=== PATIENT | male | born 2000 | race Two or more races ===

== ENCOUNTER 2018-07-06 09:11 | Inpatient (IN) | payer MEDICAID, OTHER, BC ==
[2018-07-06] MEDS: NICOTINE 21MG/24HR 1 EA TRANSDERMAL TD (09:00)
[2018-07-06 10:07] LABS: HEMATOCRIT 50.7 % (42.0-52.0); HEMOGLOBIN 17.3 g/dl (13.5-17.5); MEAN CORPUSCULAR HEMOGLOBIN 30.1 pg (27.0-33.0); MEAN CORPUSCULAR HGB CONC 34.1 g/dl (32.0-36.5); MEAN CORPUSCULAR VOLUME 88.3 fl (80.0-96.0); PLATELET COUNT, AUTOMATED 278 10^3/uL (150-450); RED BLOOD COUNT 5.74 10^6/uL (4.30-6.10); RED CELL DISTRIBUTION WIDTH 13.1 % (11.5-14.5)
[2018-07-06 10:26] LABS: AMPHETAMINES LEVEL URINE NEGATIVE (NEGATIVE); BARBITURATES URINE NEGATIVE (NEGATIVE); BENZODIAZEPINES URINE NEGATIVE (NEGATIVE); CANNABINOIDS URINE POSITIVE (NEGATIVE); COCAINE METABOLITE URINE NEGATIVE (NEGATIVE); METHADONE URINE NEGATIVE (NEGATIVE); OPIATES URINE NEGATIVE (NEGATIVE); PHENCYCLIDINE URINE NEGATIVE (NEGATIVE)
[2018-07-06 10:40] LABS: ACETAMINOPHEN LEVEL < 2.0 UG/ML (10.0-30.0); ALBUMIN 4.8 GM/DL (3.2-5.2); ALBUMIN/GLOBULIN RATIO 1.41 (1.00-1.93); ALKALINE PHOSPHATASE 74 U/L (45-117); ALT/SGPT 28 U/L (12-78); ANION GAP 10 MEQ/L (8-16); AST/SGOT 17 U/L (7-37); BILIRUBIN,DIRECT 0.3 MG/DL (0.0-0.2); BILIRUBIN,TOTAL 2.5 MG/DL (0.2-1.0); BLOOD UREA NITROGEN 16 MG/DL (7-18); CARBON DIOXIDE LEVEL 26 MEQ/L (21-32); CHLORIDE LEVEL 105 MEQ/L (98-107); CREATININE FOR GFR 1.09 MG/DL (0.70-1.30); ETHYL ALCOHOL (ETHANOL) < 0.003 % (0.000-0.010); GLUCOSE, FASTING 90 MG/DL (70-100); POTASSIUM SERUM 4.2 MEQ/L (3.5-5.1); SALICYLATE LEVEL < 1.7 MG/DL (5.0-30.0); SODIUM LEVEL 141 MEQ/L (136-145); TOTAL PROTEIN 8.2 GM/DL (6.4-8.2)
[2018-07-06] MEDS ORDERED: ACETAMINOPHEN TAB 650MG DOSE (2X325MG) PO (14:45)
[2018-07-06] MEDS ORDERED: MAALOX 30 ML SUSP *UDC PO (14:45)
[2018-07-06] MEDS ORDERED: HALOPERIDOL 5 MG TAB PO (14:45)
[2018-07-06] MEDS: risperiDONE 2 MG TAB PO (21:00)
[2018-07-07] MEDS: risperiDONE 2 MG TAB PO ×2 (08:19→20:27)
[2018-07-07] MEDS: NICOTINE 21MG/24HR 1 EA TRANSDERMAL TD (08:19)
[2018-07-07] MEDS: traZODone 50 MG TAB PO (20:28)
[2018-07-08] MEDS: NICOTINE 21MG/24HR 1 EA TRANSDERMAL TD (08:14)
[2018-07-08] MEDS: risperiDONE 2 MG TAB PO (08:14)
[2018-07-08] MEDS: MOM 30ML SUSPENSION UDC PO (11:02)
[2018-07-08] MEDS: PALIPERIDONE 3 MG ER TAB (INVEGA) PO (20:57)
[2018-07-08] MEDS: traZODone 50 MG TAB PO (20:57)
[2018-07-08] MEDS: DOCUSATE SODIUM 100 MG CAP PO (20:57)
[2018-07-09] MEDS: PALIPERIDONE 3 MG ER TAB (INVEGA) PO ×2 (09:10→21:06)
[2018-07-09] MEDS: DOCUSATE SODIUM 100 MG CAP PO ×2 (09:10→21:06)
[2018-07-09] MEDS: NICOTINE 21MG/24HR 1 EA TRANSDERMAL TD (09:11)
[2018-07-09] MEDS: PALIPERIDONE PALMITATE 234 MG/1.5 ML INJ (INVEGA SUSTENNA)(J2426) IM (10:52)
[2018-07-09] MEDS: MOM 30ML SUSPENSION UDC PO (18:11)
[2018-07-09] MEDS ORDERED: ALBUTEROL 90 MCG/ACT 8GM HFA INHALER INH (18:30)
[2018-07-09] MEDS: traZODone 50 MG TAB PO (21:06)
[2018-07-09] MEDS: guanFACINE 1 MG TAB PO (21:08)
[2018-07-09] MEDS: LORazepam 2 MG TAB PO (23:16)
[2018-07-10] MEDS: DOCUSATE SODIUM 100 MG CAP PO (09:34)
[2018-07-10] MEDS: NICOTINE 21MG/24HR 1 EA TRANSDERMAL TD (09:35)
[2018-07-10] MEDS: guanFACINE 1 MG TAB PO (21:52)
[2018-07-11] MEDS: NICOTINE 21MG/24HR 1 EA TRANSDERMAL TD (09:00)
[2018-07-11] MEDS: guanFACINE 1 MG TAB PO (20:47)
[2018-07-11] MEDS: traZODone 50 MG TAB PO (20:47)
[2018-07-12] MEDS: NICOTINE 21MG/24HR 1 EA TRANSDERMAL TD (09:08)
[2018-07-12] MEDS: PALIPERIDONE PALMITATE 156 MG/1ML INJ(INVEGA SUSTENNA)(J2426) IM (10:30)
[2018-07-12] MEDS: traZODone 50 MG TAB PO (21:17)
[2018-07-12] MEDS: guanFACINE 1 MG TAB PO (21:17)
[2018-07-13] MEDS: NICOTINE 21MG/24HR 1 EA TRANSDERMAL TD (09:00)
== END 2018-07-13 09:45 | disposition home or self-care (01) | DRG 750 ==
LOC: M ED 09:11 → M ED INP 14:51 → M PSY 18:15
PROVIDERS: Psychiatry & Neurology Psychiatry
DX: F20.0 Paranoid schizophrenia (principal); F41.9 Anxiety disorder, unspecified; F90.9 Attention-deficit hyperactivity disorder, unspecified type; J45.909 Unspecified asthma, uncomplicated; Z79.899 Other long term (current) drug therapy

== ENCOUNTER → 2023-07-14 | Outpatient (REF) | payer MEDICARE, OTHER ==
[~2023-07-14] MED LIST: ALBU2.5V10 INH; BENZ-18 PO; CELE10TA PO; CEPH500C PO; CITA20TA6 PO; DOXY100T PO; GUAN1TA PO; INVE234I IM; MUCI600T31 PO; ONDA8TAB8 PO; PRED20TA PO; RISP-7 PO; RISP-8 PO; TRAZ1TAB10 PO; VENTAER INH
== END ==
LOC: M LAB REF 21:38
PROVIDERS: ATTEND Physician Assistant
DX: M79.10 Myalgia, unspecified site (principal)

== ENCOUNTER 2023-07-16 09:41 | Inpatient (IN) | payer MEDICARE ==
[~2023-07-16] VITALS: Ht 165.1 cm; Wt 118.2 kg
[2023-07-16] VITALS (21 sets, daily range): BP systolic 160; BP diastolic 50–70; TEMP 97.3–97.5; O2SAT 85–95
[~2023-07-16 09:41] MED LIST changes: -BENZ-18 PO; -CEPH500C PO; -DOXY100T PO; -MUCI600T31 PO; -ONDA8TAB8 PO; -PRED20TA PO
[2023-07-16] MEDS ORDERED: ONDA8TAB8 PO (09:59)
[2023-07-16] MEDS ORDERED: PRED20TA PO (09:59)
[2023-07-16] MEDS ORDERED: methylPREDNISolone 125MG 2ML VIAL IV ONE (12:20)
[2023-07-16] MEDS ORDERED: NS 1,000 ML IV ONE (12:20)
[2023-07-16] MEDS ORDERED: BENZONATATE 100MG CAPSULE PO ONE (12:20)
[2023-07-16] MEDS ORDERED: CETIRIZINE (ZyrTEC) 10 MG TAB PO ONE (12:30)
[2023-07-16] MEDS ORDERED: ONDANSETRON 4MG 2ML VIAL IV ONE (12:50)
[2023-07-16 12:58] LABS: VENOUS BASE EXCESS 0.4 (-2.0-2.0); VENOUS O2 SATURATION 90.8 % (60.0-80.0); VENOUS PARTIAL PRESSURE CO2 45.2 mmHg (38.0-50.0); VENOUS PARTIAL PRESSURE O2 57.9 mmHg (30.0-50.0); VENOUS PH 7.378 UNITS (7.330-7.430); VENOUS STANDARD HCO3 24.6 MMOL/L; VENOUS TOTAL CO2 27.4 MMOL/L (24.0-28.0)
[2023-07-16 12:58] LABS: HEMATOCRIT 48.8 % (42.0-52.0); HEMOGLOBIN 16.4 g/dl (13.5-17.5); MEAN CORPUSCULAR HEMOGLOBIN 29.5 pg (27.0-33.0); MEAN CORPUSCULAR HGB CONC 33.6 g/dl (32.0-36.5); MEAN CORPUSCULAR VOLUME 87.9 fl (80.0-96.0); PLATELET COUNT, AUTOMATED 487 10^3/uL (150-450); RED BLOOD COUNT 5.55 10^6/uL (4.30-6.10); WHITE BLOOD COUNT 14.2 10^3/uL (4.0-10.0)
[2023-07-16] MEDS: LEVALBUTEROL 1.25MG 0.5ML CONCENTRATE NEB NEB PRN (13:05)
[2023-07-16 13:30] LABS: LIPASE 32 U/L (12-53)
[2023-07-16 13:31] LABS: ALBUMIN 3.7 G/DL (3.2-5.2); ALKALINE PHOSPHATASE 65 U/L (46-116); ALT/SGPT 62 U/L (7.0-40); AST/SGOT 35 U/L (<34); BILIRUBIN,DIRECT 0.3 MG/DL (<0.4); BILIRUBIN,TOTAL 0.7 MG/DL (0.3-1.2); BLOOD UREA NITROGEN 18 MG/DL (9-23); CALCIUM LEVEL 9.7 MG/DL (8.5-10.1); CARBON DIOXIDE LEVEL 25 MMOL/L (20-31); CHLORIDE LEVEL 103 MMOL/L (98-107); GLOMERULAR FILTRATION RATE > 60.0 (>60); GLUCOSE, FASTING 97 MG/DL (60-100); POTASSIUM SERUM 4.7 MMOL/L (3.5-5.1); SODIUM LEVEL 139 MMOL/L (136-145); TOTAL PROTEIN 7.6 G/DL (5.7-8.2)
[2023-07-16] MEDS ORDERED: ISOVUE-370 76% 100ML VIAL As Ordered ONE (13:37)
[2023-07-16] MEDS ORDERED: AZITHROMYCIN 250MG TABLET PO ONE (15:30)
[2023-07-16] MEDS ORDERED: NS 2,550 ML in IV 1 EA IV ONE (15:30)
[2023-07-16] MEDS ORDERED: cefTRIAXone SOD 1 GM in D5W MINI-BAG PLUS 50 ML IV ONE (15:30)
[2023-07-16] MEDS ORDERED: MED REC IN PROGRESS XX SCH (15:40)
[2023-07-16] MEDS ORDERED: HOME MED LIST COMPLETE! XX SCH (15:55)
[2023-07-16] MEDS ORDERED: LEVALBUTEROL 1.25MG 0.5ML CONCENTRATE NEB NEB PRN (16:35)
[2023-07-16 17:11] LABS: PROCALCITONIN 0.29 ng/ml
[2023-07-16] MEDS: LEVALBUTEROL 1.25MG 0.5ML CONCENTRATE NEB NEB SCH (19:37)
[2023-07-16] MEDS: NS 1,000 ML IV SCH (19:42)
[2023-07-16] MEDS: DOXYCYCLINE HYCLATE 100MG TABLET PO SCH (20:57)
[2023-07-16] MEDS: guaiFENesin ER TABLET 600 MG TAB PO SCH (20:57)
[2023-07-16] MEDS: BENZONATATE 100MG CAPSULE PO SCH (20:57)
[2023-07-17] VITALS (18 sets, daily range): BP systolic 127–162; BP diastolic 72–98; TEMP 97.7–99.1; O2SAT 89–97
[2023-07-17] MEDS: NS 1,000 ML IV SCH ×2 (03:36→12:45)
[2023-07-17 06:13] LABS: HEMATOCRIT 45.6 % (42.0-52.0); HEMOGLOBIN 15.2 g/dl (13.5-17.5); MEAN CORPUSCULAR HEMOGLOBIN 29.2 pg (27.0-33.0); MEAN CORPUSCULAR HGB CONC 33.3 g/dl (32.0-36.5); MEAN CORPUSCULAR VOLUME 87.7 fl (80.0-96.0); PLATELET COUNT, AUTOMATED 458 10^3/uL (150-450); WHITE BLOOD COUNT 13.1 10^3/uL (4.0-10.0)
[2023-07-17 06:39] LABS: ALBUMIN 3.1 G/DL (3.2-5.2); ALKALINE PHOSPHATASE 56 U/L (46-116); ALT/SGPT 48 U/L (7.0-40); AST/SGOT 20 U/L (<34); BILIRUBIN,TOTAL 0.5 MG/DL (0.3-1.2); BLOOD UREA NITROGEN 13 MG/DL (9-23); CALCIUM LEVEL 9.3 MG/DL (8.5-10.1); CARBON DIOXIDE LEVEL 27 MMOL/L (20-31); CHLORIDE LEVEL 104 MMOL/L (98-107); CREATININE FOR GFR 0.83 MG/DL (0.70-1.30); GLOMERULAR FILTRATION RATE > 60.0 (>60); GLUCOSE, FASTING 108 MG/DL (60-100); POTASSIUM SERUM 4.8 MMOL/L (3.5-5.1); SODIUM LEVEL 141 MMOL/L (136-145); TOTAL PROTEIN 6.7 G/DL (5.7-8.2)
[2023-07-17] MEDS: LEVALBUTEROL 1.25MG 0.5ML CONCENTRATE NEB NEB SCH ×4 (07:13→19:55)
[2023-07-17] MEDS: DOXYCYCLINE HYCLATE 100MG TABLET PO SCH ×2 (08:13→21:02)
[2023-07-17] MEDS: BENZONATATE 100MG CAPSULE PO SCH ×3 (08:13→21:02)
[2023-07-17] MEDS: guaiFENesin ER TABLET 600 MG TAB PO SCH ×2 (08:13→21:02)
[2023-07-17] MEDS: ENOXAPARIN 40MG/0.4ML SYRINGE (J1650 PER 10MG) SC SCH (08:14)
[2023-07-17] MEDS: NICOTINE 14 MG/24 HR TRANSDERMAL TD SCH (08:14)
[2023-07-17] MEDS: cefTRIAXone SOD 1 GM in D5W MINI-BAG PLUS 50 ML IV SCH (17:08)
[2023-07-17] MEDS ORDERED: ACETAMINOPHEN TAB 650MG DOSE (2X325MG) PO PRN (21:25)
[2023-07-18] VITALS (7 sets, daily range): BP systolic 150–169; BP diastolic 72–90; TEMP 97–97.9; O2SAT 77–96
[2023-07-18 06:28] LABS: HEMATOCRIT 44.2 % (42.0-52.0); HEMOGLOBIN 14.4 g/dl (13.5-17.5); MEAN CORPUSCULAR HEMOGLOBIN 28.7 pg (27.0-33.0); MEAN CORPUSCULAR HGB CONC 32.6 g/dl (32.0-36.5); PLATELET COUNT, AUTOMATED 472 10^3/uL (150-450); RED BLOOD COUNT 5.02 10^6/uL (4.30-6.10); WHITE BLOOD COUNT 10.9 10^3/uL (4.0-10.0)
[2023-07-18 07:02] LABS: ALBUMIN 2.9 G/DL (3.2-5.2); ALKALINE PHOSPHATASE 51 U/L (46-116); ALT/SGPT 62 U/L (7.0-40); AST/SGOT 29 U/L (<34); BILIRUBIN,TOTAL 0.4 MG/DL (0.3-1.2); BLOOD UREA NITROGEN 14 MG/DL (9-23); CARBON DIOXIDE LEVEL 26 MMOL/L (20-31); CHLORIDE LEVEL 109 MMOL/L (98-107); CREATININE FOR GFR 0.84 MG/DL (0.70-1.30); GLOMERULAR FILTRATION RATE > 60.0 (>60); GLUCOSE, FASTING 94 MG/DL (60-100); POTASSIUM SERUM 4.3 MMOL/L (3.5-5.1); SODIUM LEVEL 143 MMOL/L (136-145); TOTAL PROTEIN 6.1 G/DL (5.7-8.2)
[2023-07-18] MEDS: LEVALBUTEROL 1.25MG 0.5ML CONCENTRATE NEB NEB SCH ×4 (07:19→19:49)
[2023-07-18] MEDS: BENZONATATE 100MG CAPSULE PO SCH ×3 (08:29→21:16)
[2023-07-18] MEDS: DOXYCYCLINE HYCLATE 100MG TABLET PO SCH ×2 (08:29→21:16)
[2023-07-18] MEDS: NICOTINE 14 MG/24 HR TRANSDERMAL TD SCH (08:30)
[2023-07-18] MEDS: guaiFENesin ER TABLET 600 MG TAB PO SCH ×2 (08:30→21:17)
[2023-07-18] MEDS: ENOXAPARIN 40MG/0.4ML SYRINGE (J1650 PER 10MG) SC SCH (08:31)
[2023-07-18] MEDS: cefTRIAXone SOD 1 GM in D5W MINI-BAG PLUS 50 ML IV SCH (15:58)
[2023-07-19 05:54] VITALS: BP 119/59; TEMP 97.2; O2SAT 92
[2023-07-19 06:09] LABS: HEMATOCRIT 45.4 % (42.0-52.0); HEMOGLOBIN 15.2 g/dl (13.5-17.5); MEAN CORPUSCULAR HEMOGLOBIN 29.3 pg (27.0-33.0); MEAN CORPUSCULAR HGB CONC 33.5 g/dl (32.0-36.5); MEAN CORPUSCULAR VOLUME 87.5 fl (80.0-96.0); PLATELET COUNT, AUTOMATED 526 10^3/uL (150-450); RED BLOOD COUNT 5.19 10^6/uL (4.30-6.10); WHITE BLOOD COUNT 11.3 10^3/uL (4.0-10.0)
[2023-07-19 06:36] LABS: ALBUMIN 3.1 G/DL (3.2-5.2); ALKALINE PHOSPHATASE 53 U/L (46-116); ALT/SGPT 62 U/L (7.0-40); AST/SGOT 22 U/L (<34); BILIRUBIN,TOTAL 0.6 MG/DL (0.3-1.2); BLOOD UREA NITROGEN 10 MG/DL (9-23); CALCIUM LEVEL 9.3 MG/DL (8.5-10.1); CARBON DIOXIDE LEVEL 26 MMOL/L (20-31); CHLORIDE LEVEL 106 MMOL/L (98-107); CREATININE FOR GFR 0.82 MG/DL (0.70-1.30); GLOMERULAR FILTRATION RATE > 60.0 (>60); GLUCOSE, FASTING 100 MG/DL (60-100); POTASSIUM SERUM 4.2 MMOL/L (3.5-5.1); SODIUM LEVEL 142 MMOL/L (136-145); TOTAL PROTEIN 6.5 G/DL (5.7-8.2)
[2023-07-19] MEDS: LEVALBUTEROL 1.25MG 0.5ML CONCENTRATE NEB NEB SCH ×2 (07:47→12:01)
[2023-07-19] MEDS: DOXYCYCLINE HYCLATE 100MG TABLET PO SCH (08:10)
[2023-07-19] MEDS: guaiFENesin ER TABLET 600 MG TAB PO SCH (08:10)
[2023-07-19] MEDS: BENZONATATE 100MG CAPSULE PO SCH (08:10)
[2023-07-19] MEDS: NICOTINE 14 MG/24 HR TRANSDERMAL TD SCH (08:11)
[2023-07-19] MEDS: ENOXAPARIN 40MG/0.4ML SYRINGE (J1650 PER 10MG) SC SCH (08:11)
[2023-07-19 08:15] VITALS: O2SAT 95
[2023-07-19 08:21] VITALS: O2SAT 91
[2023-07-19] MEDS ORDERED: CEPH500C PO (09:48)
[2023-07-19] MEDS ORDERED: DOXY100T PO (09:48)
[2023-07-19] MEDS ORDERED: MUCI600T31 PO (09:48)
[2023-07-19] MEDS ORDERED: BENZ-18 PO (09:48)
== END 2023-07-19 12:14 | disposition home or self-care (01) | DRG 871 ==
LOC: M ED 09:41 → M ED INP 09:42 → ENRESERV 16:44 → OBSVTOIN 16:49 → M MSPAV 17:37
PROVIDERS: ADMIT Internal Medicine; ATTEND Internal Medicine
DX: A41.9 Sepsis, unspecified organism (principal); J18.9 Pneumonia, unspecified organism; Z68.41 Body mass index [BMI] 40.0-44.9, adult; F17.210 Nicotine dependence, cigarettes, uncomplicated; J45.909 Unspecified asthma, uncomplicated; E66.9 Obesity, unspecified; G47.33 Obstructive sleep apnea (adult) (pediatric); Z79.899 Other long term (current) drug therapy

== ENCOUNTER → 2023-11-27 | Outpatient (CLI) | payer MEDICARE ==
[~2023-11-27] MED LIST changes: +BENZ-18 PO; +CEPH500C PO; +DOXY100T PO; +MUCI600T31 PO; +ONDA8TAB8 PO; +PRED20TA PO; +RISP-105 PO; -RISP-7 PO; -RISP-8 PO; +RISP0.5T82 PO
[2023-11-27 15:13] LABS: EOS # 0.5 10^3/uL (0.0-0.5)
== END ==
LOC: M LAB 14:41
PROVIDERS: ATTEND Internal Medicine Pulmonary Disease
DX: J45.40 Moderate persistent asthma, uncomplicated (principal)

== ENCOUNTER → 2024-01-12 | Outpatient (CLI) | payer MEDICARE, OTHER | LOC: M SLEEP HO 13:57 | PROVIDERS: ATTEND Internal Medicine Pulmonary Disease | DX: G47.33 Obstructive sleep apnea (adult) (pediatric) (principal) ==

== ENCOUNTER → 2024-04-25 | Outpatient (CLI) | payer OTHER ==
[~2024-04-25] MED LIST changes: +ONDA-284 PO; -ONDA8TAB8 PO
== END ==
LOC: M SLEEP 20:00
PROVIDERS: ATTEND Internal Medicine Pulmonary Disease
DX: G47.33 Obstructive sleep apnea (adult) (pediatric) (principal)

== ENCOUNTER 2024-07-05 14:08 | Inpatient (IN) | payer MEDICARE, OTHER ==
[~2024-07-05] VITALS: Ht 165.1 cm; Wt 108.4 kg
[2024-07-05 15:06] LABS: HEMOGLOBIN 17.5 g/dl (13.5-17.5); MEAN CORPUSCULAR HEMOGLOBIN 29.4 pg (27.0-33.0); MEAN CORPUSCULAR HGB CONC 33.7 g/dl (32.0-36.5); MEAN CORPUSCULAR VOLUME 87.2 fl (80.0-96.0); PLATELET COUNT, AUTOMATED 394 10^3/uL (150-450); RED BLOOD COUNT 5.96 10^6/uL (4.30-6.10); WHITE BLOOD COUNT 7.8 10^3/uL (4.0-10.0)
[2024-07-05 15:28] LABS: ETHYL ALCOHOL (ETHANOL) 0.004 % (0.000-0.010)
[2024-07-05 15:30] LABS: ALBUMIN 4.1 G/DL (3.2-5.2); ALKALINE PHOSPHATASE 58 U/L (46-116); ALT/SGPT 55 U/L (7.0-40); AST/SGOT 16 U/L (<34); BILIRUBIN,DIRECT 0.5 MG/DL (<0.4); BILIRUBIN,TOTAL 1.2 MG/DL (0.3-1.2); BLOOD UREA NITROGEN 11 MG/DL (9-23); CALCIUM LEVEL 10.8 MG/DL (8.5-10.1); CARBON DIOXIDE LEVEL 28 MMOL/L (20-31); CHLORIDE LEVEL 108 MMOL/L (98-107); CREATININE FOR GFR 1.02 MG/DL (0.70-1.30); GLOMERULAR FILTRATION RATE > 60.0 (>60); GLUCOSE, FASTING 82 MG/DL (60-100); POTASSIUM SERUM 4.2 MMOL/L (3.5-5.1); SALICYLATE LEVEL < 3.0 MG/DL (<30); SODIUM LEVEL 142 MMOL/L (136-145); TOTAL PROTEIN 7.4 G/DL (5.7-8.2)
[2024-07-05 15:37] LABS: BARBITURATES URINE NEGATIVE (NEGATIVE); COCAINE METABOLITE URINE NEGATIVE (NEGATIVE); METHADONE URINE NEGATIVE (NEGATIVE); OPIATES URINE NEGATIVE (NEGATIVE); PHENCYCLIDINE URINE NEGATIVE (NEGATIVE)
[2024-07-05 15:38] LABS: AMPHETAMINES LEVEL URINE NEGATIVE (NEGATIVE); BENZODIAZEPINES URINE NEGATIVE (NEGATIVE); CANNABINOIDS URINE NEGATIVE (NEGATIVE)
[2024-07-05] MEDS ORDERED: MOM 30ML SUSPENSION UDC PO PRN (17:05)
[2024-07-05] MEDS ORDERED: MAALOX 30 ML SUSP *UDC PO PRN (17:05)
[2024-07-05] MEDS ORDERED: ACETAMINOPHEN 325 MG TAB PO PRN (17:05)
[2024-07-05] MEDS ORDERED: IBUPROFEN 400MG TAB PO PRN (17:05)
[2024-07-05] MEDS ORDERED: diphenhydrAMINE 25MG CAP PO PRN (17:05)
[2024-07-05 18:49] VITALS: BP 138/81; TEMP 97.1; O2SAT 96
[2024-07-06 06:20] VITALS: BP 131/76; TEMP 97.1; O2SAT 99
[2024-07-06] MEDS ORDERED: ALBU8.5H INH (09:42)
[2024-07-06] MEDS ORDERED: TREL1AER INH (09:42)
[2024-07-06] MEDS ORDERED: HOME MED LIST COMPLETE! XX SCH (09:45)
[2024-07-06] MEDS: PALIPERIDONE 3MG ER TAB (INVEGA) PO SCH (09:58)
[2024-07-06 16:49] VITALS: BP 138/88; TEMP 97.6
[2024-07-06] MEDS: traZODone 50 MG TAB PO PRN (20:21)
[2024-07-07 06:03] VITALS: BP 138/87; TEMP 97.6; O2SAT 100
[2024-07-07 15:27] VITALS: BP 138/67; TEMP 98.5; O2SAT 98
[2024-07-07] MEDS ORDERED: INVE234I IM (20:09)
[2024-07-07] MEDS ORDERED: INVE156I IM (20:09)
[2024-07-07] MEDS ORDERED: PALI1TAB3 PO (20:09)
[2024-07-08 06:27] VITALS: BP 126/83; TEMP 97; O2SAT 97
[2024-07-08] MEDS: PALIPERIDONE 6MG ER TAB (INVEGA) PO SCH (08:21)
[2024-07-08] MEDS: PALIPERIDONE PAL 234MG/1.5ML INJ (INVEGA)(FREE PSY INPT ONLY) IM ONE (08:28)
== END 2024-07-08 11:17 | disposition home or self-care (01) | DRG 750 ==
LOC: M ED 14:08 → M ED INP 17:02 → M PSY 18:18
PROVIDERS: ADMIT Psychiatry & Neurology Psychiatry; ATTEND Psychiatry & Neurology Psychiatry
DX: F20.9 Schizophrenia, unspecified (principal); F17.210 Nicotine dependence, cigarettes, uncomplicated; J45.909 Unspecified asthma, uncomplicated; G47.33 Obstructive sleep apnea (adult) (pediatric); E66.812 Obesity, class 2; Z63.5 Disruption of family by separation and divorce